=== PATIENT | female | born 1960 | race Caucasian/White ===

== ENCOUNTER 2018-02-27 08:26 | Inpatient (IN) | payer OTHER ==
[~2018-02-27] VITALS: Ht 10.2 cm; Wt 79.8 kg
[2018-02-27] MEDS ORDERED: SERTRALINE HCL100 MG PO (09:26)
[2018-02-27] MEDS ORDERED: ADULT ASPIRIN R81 MG PO (09:27)
[2018-02-27] MEDS ORDERED: LANSOPRAZOLE30 M2 PO (09:27)
[2018-02-27] MEDS ORDERED: ATORVASTATIN CA40 M1 PO (09:27)
--- NOTE | 2018-02-27 09:34 | RADIOLOGY REPORT ---
EXAMINATION: XR KNEE, RIGHT CLINICAL INFORMATION: Pain COMPARISON: None TECHNIQUE: Four views of the right knee. FINDINGS: Normal bony mineralization. No evidence of acute fracture or dislocation. Minor decrease in the medial tibiotalar joint and patellofemoral joints. Moderate chondrocalcinosis medial and lateral menisci. Small joint effusion. IMPRESSION: 1. No acute osseous abnormality. 2. Moderate chondrocalcinosis medial and lateral menisci. 3. Mild degenerative changes.
--- NOTE | 2018-02-27 10:50 | ED ANKLE/FOOT INJURY COMPLAINT ---
History of Present Illness General Chief Complaint: Lower Extremity Injury Stated Complaint: RT KNEE AND LEG PAIN Source: patient, family Exam Limitations: no limitations Vital Signs & Intake/Output Vital Signs & Intake/Output Vital Signs Date Time Temp Pulse Resp B/P B/P Pulse O2 O2 Flow FiO2 Mean Ox Delivery Rate 02/27 2047 98.3 82 20 103/57 95 Room Air 02/27 1908 98.3 116 18 115/62 95 Room Air 02/27 1441 98.3 81 16 111/73 97 Room Air 02/27 1203 98.0 73 18 106/55 96 Room Air 02/27 0831 97.1 100 16 106/71 96 Room Air Allergies Coded Allergies: No Known Allergies (02/27/18) Reconcile Medications Aspirin (Adult Aspirin Regimen) 81 MG TABLET.DR 1 TAB PO DAILY HEART HEALTH ( Reported) Atorvastatin Calcium 40 MG TABLET 1 TAB PO DAILY CHOLESTEROL (Reported) Lansoprazole 30 MG CAPSULE.DR 1 CAP PO DAILY GI (Reported) Sertraline HCl 100 MG TABLET 1.5 TAB PO DAILY MENTAL HEALTH (Reported) Triage Note: PT STATES THAT SHE HAS BEEN HAVING R LEG PAIN SINCE YESTERDAY, DENIES INJURY. PAIN HAS BEEN CONSTANT. DECLINES MEDS AT TRIAGE Triage Nurses Notes Reviewed? yes HPI: 57 yo F PMH HLD, GERD presenting with right lower extremity pain. Patient woke up yesterday morning with right lower extremity pain, initially began in medial reyes, now in calf and posterior thigh, aching quality, constant, worse with movement, palpation, weight bearing, took 2 percocet without relief. Denies associated fevers, chills, chest pain, SOB, palpitations, LE swelling, recent immobility or hospitalistion, weakness, numbness, or other focal neurologic Sx. No known straing/spraining injury or direct trauma to leg. (Christal WALDRON,Jono) Past History Travel History Traveled to [place] past 21 day No Medical History Any Pertinent Medical History? 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 Yes (Christal WALDRON,Jono) Review of Systems Review of Systems Constitutional: Reports: no symptoms. EENTM: Reports: no symptoms. Respiratory: Reports: no symptoms. Cardiovascular: Reports: no symptoms. GI: Reports: no symptoms. Genitourinary: Reports: no symptoms. Musculoskeletal: Reports: see HPI. Skin: Reports: see HPI. Neurological/Psychological: Reports: see HPI. Hematologic/Endocrine: Reports: no symptoms. Immunologic/Allergic: Reports: no symptoms. All Other Systems: Reviewed and Negative (Christal WALDRON,Jono) Physical Exam Physical Exam General Appearance: well developed/nourished, mild distress Head: atraumatic Eyes: Bilateral: PERRL, EOMI. Ears, Nose, Throat: normal pharynx, normal ENT inspection, hearing grossly normal Neck: normal inspection, supple Cardiovascular/Respiratory: regular rate/rhythm Back: normal inspection Leg/Knee/Thigh Left: pain Psychiatric: awake, alert, oriented x 3 Skin: intact, normal color, warm/dry Comments: Lower extremities: TTP over right posterior popliteal fossa, calf, and right lateral knee joint, trace non-pitting swelling of RLE, 2+ PT pulses bilaterally without symmetric tactile temperature, BLE strength 5/5, no sensory deficits (Christal WALDRON,Jono) Progress Differential Diagnosis: DVT, CHF, arterial insufficiency, cellulitis, septic arthritis, gout, fracture, dislocation, sprain, contusion, compartmental syndrome Plan of Care: Orders Procedure Date/time Status Regular Diet 02/28 B Active CBC WITHOUT DIFFERENTIAL 02/28 600 Active BASIC ELECTROLYTES PLUS BUN&CR 02/28 600 Active PT Evaluate & Treat 02/27 2235 Active Heat/Cold Therapy 02/27 2234 Active Pathway - chart 02/27 2059 Active House Staff 02/27 2059 Active ED Holding Orders 02/27 2054 Active Vital Signs 02/27 2054 Active Code Status 02/27 2054 Active Patient Data 02/27 2046 Active BLOOD CULTURE 02/27 1941 Active Admit to inpatient 02/27 1907 Active Add-on Test (ER Only) 02/27 1907 Active Add-on Test (ER Only) 02/27 1824 Active CULTURE,BODY FLUID 02/27 1446 Active SYNOVIAL FLUID CELL COUNT 02/27 1446 Active CRYSTAL ANALYSIS 02/27 1446 Active URIC ACID 02/27 1341 Complete LYME TITRE 02/27 1341 Active C-REACTIVE PROTEIN 02/27 1341 Complete WESTERGREN SED RATE 02/27 1323 Complete CBC WITHOUT DIFFERENTIAL 02/27 1323 Complete BASIC METABOLIC PANEL 02/27 1323 Complete Intake & Output 02/27 0946 Active VTE Mechanical Prophylaxis 02/27 UNK Active Heat/Cold Therapy 02/27 UNK Active Activity/Ambulation 02/27 UNK Active Current Medications Sig/Nguyen Start time Last Medication Dose Stop Time Status Admin Atorvastatin Calcium 40 MG 1700 02/28 1700 AC (Lipitor) Aspirin Buffered 81 MG DAILY 02/28 09 AC (Ecotrin) Enoxaparin Sodium 40 MG DAILY 02/28 09 AC (Lovenox) Sertraline HCl 150 MG DAILY 02/28 900 AC (Zoloft) Omeprazole 20 MG DAILY AC 02/28 07 AC (Prilosec) Indomethacin Sodium 50 MG TID 02/27 2245 UNVr (Indocin 25 MG Cap) Oxycodone/ 1 TAB Q6P PRN 02/27 2115 AC Acetaminophen (Percocet) Acetaminophen 650 MG Q6P PRN 02/27 2100 AC (Tylenol) Laboratory Tests 02/27/18 1600: Lymphocytes 2, % Normal PMNs 76, Misc Hematology Test , Fluid WBC 93899 H, Fld Total RBCs Counted 3000 H 02/27/18 1446: Fluid Total Protein Cancelled 02/27/18 1341: Anion Gap 10, Estimated GFR > 60, BUN/Creatinine Ratio 12.5, Glucose 93, Uric Acid 4.7, Calcium 9.6, C-Reactive Prot, Quant 4.6 H, CBC w Diff NO MAN DIFF REQ , RBC 4.61, MCV 92.1, MCH 31.3 H, MCHC 34.0, RDW 13.6, MPV 7.0 L, Gran % 67.1, Lymphocytes % 22.1, Monocytes % 7.9, Eosinophils % 1.8, Basophils % 1.1, Absolute Granulocytes 6.5, Absolute Lymphocytes 2.1, Absolute Monocytes 0.8 H, Absolute Eosinophils 0.2, Absolute Basophils 0.1, ESR Westergren 22 H, Lyme Disease Antibody Pending Microbiology 02/28 2048 BLOOD: Blood Culture - RECD 02/27 2030 BLOOD: Blood Culture - RECD 02/27 1600 BODY FLUID: Body Fluid Culture - RES 02/27 1600 BODY FLUID: Gram Stain - RES Physician MDM: 57 yo F PMH HLD, GERD presenting with right lower extremity pain. HR 90s, VSS, remainder of exam as above. DDx: MSK strain, DVT, ruptured sullivan's cyst, inflammatory arthritis, ligamentous strain, low concern for septic arthritis, knee Fx or acute limb ischemia. Right knee XR with some degenerative changes, unremarkable. RLE DVT US without evidence of DVT, mild-moderate right knee effusion. Labs to evaluate for septic arthritis sent, normal WBC count, ESR with trace elevation at 22, low concern for septic arthritis. Right knee arthrocentesis preformed: skin and needle tract anesthetized with lidocaine, skin sterilized with chlorohexadine preps x 3, allowed to dry fully, mask and sterile gloves used, 10 ccs of cloudy yellow fluid drained from lower medial knee joint with 18g needle, no apparent complications, pain somewhat improved after procedure. Synovial fluid analysis with 29,000 WBCs, inflammatory, though not suggestive of esptic joint (>50,000). Patient given oxycodone x2, ibuprofen, tylenol with minimal relief of pain, on re-examination patient sleeping, comfortable, but unable to ambulate on right leg without significant pain, nearly fell several times despite cane. Given that the patient is unable to ambulate, I will admit her for pain control, PT evaluation, follow up of synovial fluid analysis +/- orthopedics consult. (Christal WALDRON,Jono) Departure Departure Disposition: STILL A PATIENT Condition: Stable Clinical Impression Primary Impression: Inflammatory arthritis Referrals: Uriel WALDRON,Dewey Chambers (PCP/Family) Departure Forms: Customer Survey General Discharge Information Admission Note Spoke With: Shoshana Esquivel MD Documentation of Exam: Documentation of any treatments & extenuating circumstances including Concerns Regarding Discharge (functional status, medication knowledge or non-compliance, living conditions, etc.) that warrant an admission rather than observation: [ Patient presents with atraumatic right knee pain that was preventing her from ambulating at baseline prompting presentation to the emergency department, in the emergency department she was found to have a right knee effusion, the fusion appears to be inflammatory in nature, septic arthritis was unable to be ruled out, the patient requires admission to the hospital for IV antibiotics, monitoring, follow up of synovial fluid studies, PT/OT evaluation, and possibly orthopedics consult, if discharged patient has a high likelihood of following with significant manic injury leading to morbidity or possibly , if discharged patient has a high likelihood of progressive inflammation of her right knee, possibly leading to severe joint damage and signifcant morbidity (Christal WALDRON,Jono) Resident Co-Sign Statement Statement: ED Attending supervision documentation- [X] I saw and evaluated the patient. I have also reviewed all the pertinent lab results and diagnostic results. I agree with the findings and the plan of care as documented in the Resident's documentation. [X] I have reviewed the ED Record and agree with the Resident's documentation. [] Additions or exceptions (if any) to the Resident's note and plan are summarized below: [] (Alex WALDRON,Sandro Cifuentes)
--- NOTE | 2018-02-27 13:03 | ULTRASOUND REPORT ---
EXAMINATION: US TRIPLEX LOWER EXTREMITY, RIGHT CLINICAL INFORMATION: Right lower extremity swelling. COMPARISON: Same day right knee radiographs. TECHNIQUE: Color-flow triplex imaging with spectral analysis and compression Doppler were performed on the lower extremity. FINDINGS: Respiratory variation, normal compression and augmented flow are noted throughout the lower extremity. The visualized common femoral vein, superficial femoral vein, profunda femoral vein, popliteal vein and midcalf peroneal and posterior tibial venous segments show no evidence of deep venous thrombosis. There is a [id number] right knee joint effusion. IMPRESSION: No evidence for deep venous thrombosis. [id number] right knee joint effusion.
[2018-02-27 13:52] LABS: ABSOLUTE BASOPHIL COUNT 0.1 /CUMM (0.0-0.2); ABSOLUTE EOSINOPHIL COUNT 0.2 /CUMM (0.0-0.7); ABSOLUTE GRANULOCYTE CT 6.5 /CUMM (1.4-6.5); ABSOLUTE LYMPH COUNT 2.1 /CUMM (1.2-3.4); ABSOLUTE MONOCYTE COUNT 0.8 /CUMM (0.10-0.60); BASOPHIL % 1.1 % (0.0-2.0); EOSINOPHIL % 1.8 % (0-5); GRANULOCYTE % 67.1 % (42.2-75.2); HEMATOCRIT 42.5 % (37-47); MEAN CORPUSCULAR HGB 31.3 PG (27.0-31.0); MEAN CORPUSCULAR VOLUME 92.1 FL (81.0-99.0); PLATELET COUNT 209 /CUMM (130-400); RBC DISTRIBUTION WIDTH 13.6 % (11.5-14.5); RED BLOOD CELL CT 4.61 /CUMM (4.20-5.40); WHITE BLOOD CELL COUNT 9.6 /CUMM (4.8-10.8)
--- NOTE | 2018-02-27 20:41 | History & Physical ---
MustaphaAlee 02/27/182036: General Information and HPI MD Statement: I have seen and personally examined DORIE HASSAN and documented this H&P. The patient is a 57 year old F who presented with a patient stated chief complaint of [Joint pain]. Source of Information: patient, old records Exam Limitations: no limitations History of Present Illness: Ms. Hassan is a 57yo F w/ PMH of hyperlipidemia, GERD, presented to ER with right lower extremity pain. On Tuesday patient got up early with sudden onset of right knee none-weight bearing due to pain/cramping at knee, and had been using icy hot patch on . Tuesday morning she felt less cramping/pain, and went shopping with grandson, however at Tuesday night it got worse again. She took oxycontin to ease the pain but not really helping, and had difficulty getting to bathroom during the night. The pain was radiating down to calf on Tuesday but now more localized to the top and back of the knee with a pulling/stretching feelings, and without DVT findings in ER imaging.Patient denied any redness, but endorsed that the right knee seems more swollen than the left. Patient denied similar episodes in the past. -FHx: Mother may have had gout, father had CAP s/p stent. During our clinical interaction, patient denied recent travel/sick contacts, fever/lightheadedness/diaphoresis/night sweat/weight change/cough/SOB/Chest Pain /Palpitation/Abdominal pain/bowel movement or urinary abnormality, or other skin /musculoskeletal/neurological/mood disorders, or dietary/appetite change. -Smokin cigs/day x 40yrs -Alcohol: 2-3 glasses of rum with diet coke -Rec Drugs: denied Allergies/Medications Allergies: Coded Allergies: No Known Allergies (02/27/18) Home Med list Aspirin (Adult Aspirin Regimen) 81 MG TABLET. 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 . FATHER (CAD s/p stent). Psychosocial History Smoking Status: Current Everyday Smoker ETOH Use: occasional use Illicit Drug Use: denies illicit drug use Functional Ability ADLs Independent: dressing, eating, toileting, bathing. Ambulation: independent IADLs Independent: shopping, housework, finances, food prep, telephone, transportation , medication admin. Review of Systems Review of Systems Constitutional: Reports: see HPI. Exam & Diagnostic Data Last 24 Hrs of Vital Signs/I&O Vital Signs Date Time Temp Pulse Resp B/P B/P Pulse O2 O2 Flow FiO2 Mean Ox Delivery Rate 02/27 1908 98.3 116 18 115/62 95 Room Air 02/27 1441 98.3 81 16 111/73 97 Room Air 02/27 1203 98.0 73 18 106/55 96 Room Air 02/27 0831 97.1 100 16 106/71 96 Room Air Intake & Output 02/27 1600 02/27 0800 02/27 0000 Intake Total Output Total Balance Patient 80.739 kg Weight Physical Exam General Appearance Alert, Oriented X3, Cooperative, No Acute Distress Skin No Rashes, No Breakdown, No Significant Lesion Skin Temp/Moisture Exam: Warm/Dry Sepsis Skin Exam (color): Normal for Ethnicity HEENT Atraumatic, PERRLA Neck Supple, No JVD Lymphatic Axillary nl, Cervical nl Cardiovascular Regular Rate Lungs Clear to Auscultation, Normal Air Movement Abdomen Normal Bowel Sounds, Soft, No Tenderness Neurological Normal Speech, Normal Tone, Sensation Intact Extremities No Cyanosis, No Edema, Normal Pulses, No Tenderness/Swelling, limited ROM of right knee Last 24 Hrs of Labs/Kiko: Laboratory Tests 02/27/18 1600: Lymphocytes 2, % Normal PMNs 76, Misc Hematology Test , Fluid WBC 33460 H, Fld Total RBCs Counted 3000 H 02/27/18 1446: Fluid Total Protein Cancelled 02/27/18 1341: Anion Gap 10, Estimated GFR > 60, BUN/Creatinine Ratio 12.5, Glucose 93, Uric Acid 4.7, Calcium 9.6, C-Reactive Prot, Quant 4.6 H, CBC w Diff NO MAN DIFF REQ , RBC 4.61, MCV 92.1, MCH 31.3 H, MCHC 34.0, RDW 13.6, MPV 7.0 L, Gran % 67.1, Lymphocytes % 22.1, Monocytes % 7.9, Eosinophils % 1.8, Basophils % 1.1, Absolute Granulocytes 6.5, Absolute Lymphocytes 2.1, Absolute Monocytes 0.8 H, Absolute Eosinophils 0.2, Absolute Basophils 0.1, ESR Westergren 22 H, Lyme Disease Antibody Pending Microbiology 02/28 2048 BLOOD: Blood Culture - RECD 02/27 2030 BLOOD: Blood Culture - RECD 02/28 1600 BODY FLUID: Body Fluid Culture - RES 02/28 1600 BODY FLUID: Gram Stain - RES Assessment/Plan Assessment: On admission, Vitals: Stable afebrile, tachycardia in the 100s, BP 111/73, 97% on room air -CBC: Unremarkable except ESR 22 -BMP: Unremarkable -UA/Microbiology: -Knee x-ray: 1. No acute osseous abnormality. 2. Moderate chondrocalcinosis medial and lateral menisci. 3. Mild degenerative changes. -EKG: NSR w/o significant ST-T abnormalities. -Interventions in ER: Arthrocentesis Problem list/Assessment/Hospital Course: #Right knee pain, pending ruling out septic arthritis, ddx including septic/ gouty/pseudogout/trauma/osteo. Based on patient's age, imaging showing chondrocalcinosis, cell count <[id number] in arthrocentesis, pending crystal, no previous gouty episodes/low serum UA, patient's likely to be pseudogouty/trauma. #Active smoker #PMH of hyperlipidemia, GERD - Admit to general medicine floor, vitals per protocol - Advised patient to restrain from moving around unless necessary. Commode provided in room. - Monitor if any fever - Pain control w/ Tylenol/Percocet - Continued home meds + nicotine patch PRN - Pending rheumatology consult in the AM - Pending arthrocentesis culture/crystal in the AM. if not infectious, will seek for steroid injection. - Start ABX if fever. DVT prophylaxis Pharm PPX + ALPS Regular Diet Full Code As Ranked By This Provider Problem List: 1. Inflammatory arthritis Core Measures/Misc (06/12) Acute Coronary Syndrome ACS Diagnosis: No Congestive Heart Failure Congestive Heart Failure Diagnosis No Cerebrovascular Accident CVA/TIA Diagnosis: No VTE (View Protocol) VTE Risk Factors Age>40 No Mechanical VTE Prophylaxis d/t N/A MechProphylax Ordered No VTE Pharm Prophylaxis d/t NA PharmProphylax ordered Sepsis (View protocol) Sepsis Present: No If YES complete Sepsis Event Note If YES complete Sepsis Event Note Trent D[place] 02/28/18 0040: Core Measures/Misc (06/12) Sepsis (View protocol) If YES complete Sepsis Event Note If YES complete Sepsis Event Note Resident Review Statement Resident Statement: examined this patient, discussed with exercise science internship, agreed with exercise science internship, amended to note Other Findings: Ms Hassan is a 57-year-old woman with a past history of remote h/o nephrolithiasis, hyperlipidemia, GERD, mild depression came into the hospital with a chief concern of right leg pain that started 2 day ago, which she noticed it incidentally while she was walking. Pain was repoted to be in her right knee, 10/10, radiation to the right leg, and was partially relieved w/ taking oxycontin+cold tx. After one day, she went to the grocery store, when she realized that pain was worsened, and then came in to the ER. She reported that she may have twisted the knee on a few occassions, but no clear h/o severe injury or contact sports, no fall, or injury. No history of fever, or chills. No erythema around right knee, no tendnerss, rash or other joint pains. No h/o joint pains, no h/o colitis ( last colonoscopy was normal). No neuro deficits. No chest pain, shortness of breath, palpitations. No recent immobilization. 30- pack-year smoking history. Nonalcoholic. No previous h/o gout. No prosthetic joints, or other hardware in the body. No recent tx for bacteremia. No IVDA or use of prednisone or other immunosuppressive agents. At the time of admission-temperature 98.0, pulse rate 73, respiration 18, blood pressure 106/55, 96% on room air. General Exam: AAOx3, No acute distress, Skin: No rashes, no breakdown;HEENT: PERRLA, EOMI;Neck: Supple, No JVD;No cervical lymphadenopathy;CVS: Reg Rate, Normal S1,S2, No MGR;Resp: Normal air entry, no ronchi/rales;Abdomen: Soft, No tenderness, Normal Bowel Sounds;Neuro: Normal Speech, Strength 5/5 b/l x 4 extremities, Sensation intact, CN III-XII NL, Reflexes 2+;Extremities: No cyanosis, no pedal edema, restricted joint mobility on RLE, no tenderness, or erythema. Arthrocentesis was done in the ER. Pertinent lab findings: WBC 9.6, hemoglobin 14.4, hematocrit 42.5. Platelets 209. ESR 22 Renal Fn BUN 10, Sr Cr 0.8. Uric acid 4.7 Arthrocentesis fluid analysis: WBC 29k, RBCs 3000 w/ diff 76% granulocytes. Crystal analysis pending. Gram stain negative. Cultures pending. Lyme disease antibody-pending Knee x-ray 02/27/2018 revealed 1. No acute osseous abnormality.2. Moderate chondrocalcinosis medial and lateral menisci.3. Mild degenerative changes. Lower extremity right venous Doppler 02/27/2018 revealed no evidence for deep venous thrombosis. [id number]-ns-[id number] right knee joint effusion. 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 Alghough, she didnt have any gastrib bypoass surgery, previous h/o nephrolithiasis whould point towards calcium crytstals. Although, she doesnt have any risk factors, septic arthritis should always be in the differential, while OA, RA should be considered. She also had repetitite minor injuries, which sould have caused meniscal tears, leading to joint effsion too. Remote causes such as Reiters/reactive are not likely. Lyme disease is pending, but given the area, it should be in the differential always. In regards to septic arthritis, she was already given vancomycin in the ER. Gram stain is not very sensitive, and also an early infective state can give WBC < 50k, and if she develops any s/s of infection she should be started on abx. Problem list: 1. 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 h/o depression Plan: - Admit the pt to gen med service. - Joint immobilization at position of comfort. - Bed rest for now. - Heat/Cold tx - Tx w/ Indomethacin 50 mg TID scheudled for now to quell the acute flare. - Follow joint aspiration anaysis that would direct tx. - If it is indeed crystalline arthritis, start prophylactic w/ flare prevention w/ either nsaid or urate lowering drug. - Physical Tx. - Neurovascular checks every shift. - Monitor vitals closely. Checklist: 1. DVT PPx- pharmacological 2. GI PPx- PPI 3. Full code 4. Med rec-done. Alvin WALDRON, [facility] 02/28/18 0237: Core Measures/Misc (06/12) Sepsis (View protocol) If YES complete Sepsis Event Note If YES complete Sepsis Event Note Attending MD Review Statement Attending Statement Attending MD Statement: examined this patient, discuss w/resident/PA/HAMPER MAKER, agreed w/resident/PA/HAMPER MAKER, discussed with family, reviewed images, amended to note Attending Assessment/Plan: 57 yo F with h/o GERD, HLD, prediabetes, depression, is here for evaluation of right knee and leg stiffiness, numbness with pain that started 2 days ago. She did notice the right knee was swollen but denies erythema. Patient denies any trauma or fall. Prolonged standing made the pain worse. She has difficulty bending her knee and has been using a cane to help ambulation. She reports hot flashes but no fever, chills or night sweats. She has no history of diabetes, rheumatoid or osteoarthritis, no prosthetic joints or previous joint surgeries. She denies steroid intra-articular injections, no IV drug use. She denies h/o gout. She is a current smoker and drinks 1- 4 glasses of rum everyday after work. Denies any alcohol withdrawals or DT's. She does report that over the past 1 month, she has noticed pain in the right knee with twisting or turning movements of the leg. Vitals stable. Right knee appears swollen compared to left but no erythema or warmth, ROM is limited. Attempted doing knee maneuvre's but limited exam due to knee pain. Peripheral pulses are well felt. Arthrocentesis performed in ER. Labs: WBC 9.6, ESR 22, CRP 4.6, uric acid 4.7. Synovical fluid analysis: WBC 31286, PMN's 76, lymphocytes 2, RBC 3000, Gram stain no organisms. Culture pending. Crystal analysis pending. Right knee Xray: moderate chondrocalcinosis medial and lateral menisci, with mild degenerative changes, small joint effusion. LE doppler: no DVT. Small to moderate right knee joint effusion. Assessment and plan: 1. Acute right knee effusion and swelling, concerning for inflammatory arthritis most likely pseudogout (given xray findings, synovial WBC <18541), however septic arthritis remains in the differential and should be ruled out with negative blood and synovial cultures. Systemic rheumatic disease or gonococcal infection are other possibilities. Another differential is a meniscal injury or cartilage tear. 2. Gait instability 3. History of pre-diabetes, GERD, HLD - Admit to General medicine - Pancuture - Await fluid culture and crystal analysis results - IV vancomycin given in ER. We will hold off antibiotics unless patient is febrile or trevor a white count - Most likely this is inflammatory arthritis and can be managed with intra- articular steroid injections, once infection is ruled out. - Immobilization - Local ice or cool packs - Indomethacin 50 mg TID until further plan by Rheumatology - Consult rheumatology - PT eval - Pain management with Tylenol, tramadol and percocet as needed - Smoking cessation counseling, nicotine patch - Continue home meds DVT ppx Hep SC. Full code.
--- NOTE | 2018-02-27 21:40 | Admission Certification ---
Admission Certification Certification Statement - As attending physician, I certify that at the time of - admission, based on clinical presentation, severity of - symptoms, need for further diagnostic testing and - therapeutic interventions, and risk of adverse outcomes - without in-hospital treatment, in my clinical assessment, - this patient requires an acute hospital stay for a minimum - of two nights or longer. I have also considered psychsocial - factors such as support system, advanced age, financial - issues, cognitive issues, and failed out-patient treatments, - past re-admission history, safety of patient, and lack of - compliance as applicable. Specific rationale supporting this admission is: Right knee acute pain and effusion with gait instability.
[2018-02-28 06:08] LABS: ABSOLUTE BASOPHIL COUNT 0 /CUMM (0.0-0.2); ABSOLUTE EOSINOPHIL COUNT 0.2 /CUMM (0.0-0.7); ABSOLUTE GRANULOCYTE CT 5.5 /CUMM (1.4-6.5); ABSOLUTE LYMPH COUNT 1.5 /CUMM (1.2-3.4); ABSOLUTE MONOCYTE COUNT 0.7 /CUMM (0.10-0.60); BASOPHIL % 0 % (0.0-2.0); EOSINOPHIL % 2.6 % (0-5); GRANULOCYTE % 69.1 % (42.2-75.2); HEMATOCRIT 39.5 % (37-47); MEAN CORPUSCULAR HGB 31.3 PG (27.0-31.0); MEAN CORPUSCULAR HGB CONC 33.8 G/DL (33.0-37.0); MEAN CORPUSCULAR VOLUME 92.6 FL (81.0-99.0); MEAN PLATELET VOLUME 7.3 FL (7.4-10.4); PLATELET COUNT 187 /CUMM (130-400); RBC DISTRIBUTION WIDTH 13.6 % (11.5-14.5); RED BLOOD CELL CT 4.27 /CUMM (4.20-5.40); WHITE BLOOD CELL COUNT 7.9 /CUMM (4.8-10.8)
--- NOTE | 2018-02-28 08:33 | Cons- Rheumatology ---
General Information and HPI Consulting Request Date of Consult: 02/28/18 Requested By: Alvin WALDRON,Shoshana Reason for Consult: Evaluate a painful swollen right knee Source of Information: patient Exam Limitations: no limitations History of Present Illness: This is a 57-year-old female who I'm asked to see in consultation with a chief complaint of a painful right knee. Patient has no previous history of arthritis. She claims 3 days ago she awoke with pain and swelling of her right knee there is no history of trauma. Over this period time the pain became so bad she came to the emergency room 24 hours ago. She denies fever or chills. He's been worked up in the emergency room with an x-ray which reveals chondrocalcinosis. She also had an aspiration of the right knee which yielded 10 mL of cloudy fluid. The culture of this fluid is pending but the cell count shows a white count of 29,000 which is inflammatory. It is no report of any calcium pyrophosphate crystals found. Routine labs are unremarkable she was given Indocin 50 mg around midnight earlier today. Allergies/Medications Allergies: Coded Allergies: No Known Allergies (02/27/18) Home Med List: Aspirin (Adult Aspirin Regimen) 81 MG TABLET.DR 1 TAB PO DAILY HEART HEALTH ( Reported) Atorvastatin Calcium 40 MG TABLET 1 TAB PO DAILY CHOLESTEROL (Reported) Lansoprazole 30 MG CAPSULE.DR 1 CAP PO DAILY GI (Reported) Sertraline HCl 100 MG TABLET 1.5 TAB PO DAILY MENTAL HEALTH (Reported) Review of Systems Review of Systems: Is no history of psoriasis or inflammatory bowel disease. He does have upper GI symptoms and takes Prevacid for this. There is no history of any bleeding ulcers. She denies previous episodes of painful joint swelling. 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 She is a cigarette smoker and does have 2 or 3 drinks of rum a few nights per week. 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 . FATHER (CAD s/p stent). Psychosocial History Smoking Status: Current Everyday Smoker ETOH Use: occasional use Illicit Drug Use: denies illicit drug use Functional Ability ADLs Independent: dressing, eating, toileting, bathing. Ambulation: independent IADLs Independent: shopping, housework, finances, food prep, telephone, transportation , medication admin. Exam & Diagnostic Data Vital Signs and I&O Vital Signs Date Time Temp Pulse Resp B/P B/P Pulse O2 O2 Flow FiO2 Mean Ox Delivery Rate / 0611 96.5 78 18 114/61 96 Room Air 06/05 0031 96.9 96 18 107/57 96 Room Air 06/ 2047 98.3 82 20 103/57 95 Room Air 06/04 1908 98.3 116 18 115/62 95 Room Air 06/04 1441 98.3 81 16 111/73 97 Room Air 06/04 1203 98.0 73 18 106/55 96 Room Air 06/ 0831 97.1 100 16 106/71 96 Room Air Physical Exam: On examination she is well-developed well-nourished alert woman lying on a stretcher in the emergency room. She is afebrile. Examination of her hands wrists elbows and shoulders have good range of motion without any tenderness swelling or subcutaneous nodules right knee appears enlarged and is warm with a supra patellar effusion present. We'll to fully extend the knee I do feel a popliteal swelling, typical of a Bermeo's cyst behind the right knee. Action is limited to 90. He has good range of motion without any swelling or tenderness. Ankles and feet are normal Assessment/Plan Assessment: This represents an acute monoarticular inflammatory arthritis. Finding of chondrocalcinosis on x-rays most likely this represents pseudogout although the synovial fluid examination did not disclose calcium pyrophosphate crystals. I have very little suspicion that this represents a septic arthritis but she should be admitted and observed until the cultures of the synovial fluid are definitively negative. She was given Indocin 50 mg and I would agree with continuing this 3 times a day for the first 36 or so hours. If the synovial fluid cultures negative she could be discharged and followed up as an outpatient. The Indocin should be tapered after 36 hours to 50 mg twice a day for another 48 hours and then discontinued. Recommendations: I would hold off on antibiotics at the present time and continue Indocin as stated above Consult Acknowledgment - Thank you for your consult request.
--- NOTE | 2018-02-28 08:42 | PN- Housestaff ---
Brenton Brito 02/28/18 0842: Subjective Follow-up For: R knee pseudogout Subjective: Patient reports R knee pain with flexion and extension. Review of Systems Constitutional: Reports: see HPI. Objective Last 24 Hrs of Vital Signs/I&O Vital Signs Date Time Temp Pulse Resp B/P B/P Pulse O2 O2 Flow FiO2 Mean Ox Delivery Rate 02/28 0917 98.0 73 18 100/56 95 Room Air / 0611 96.5 78 18 114/61 96 Room Air / 0031 96.9 96 18 107/57 96 Room Air / 2047 98.3 82 20 103/57 95 Room Air / 1908 98.3 116 18 115/62 95 Room Air / 1441 98.3 81 16 111/73 97 Room Air / 1203 98.0 73 18 106/55 96 Room Air Physical Exam General Appearance: Alert, Oriented X3, Cooperative, No Acute Distress Cardiovascular: Regular Rate, Normal S1, Normal S2 Lungs: Clear to Auscultation, Normal Air Movement Abdomen: Normal Bowel Sounds, Soft, No Tenderness Extremities: R knee swelling with + Bermeo cyst Current Medications: Current Medications Sig/Nguyen Start time Last Medication Dose Route Stop Time Status Admin Acetaminophen 650 MG Q6P PRN 02/27 2100 AC PO Aspirin Buffered 81 MG DAILY 02/28 0900 AC 02/28 PO 0910 Atorvastatin Calcium 40 MG 1700 02/28 1700 AC PO Enoxaparin Sodium 40 MG DAILY 02/28 0900 AC 02/28 SC 0910 Ibuprofen 0 .STK-MED ONE 02/27 1734 DC PO Ibuprofen 600 MG ONCE ONE 02/27 1645 DC 02/27 PO 02/27 1646 1727 Indomethacin Sodium 50 MG TID 02/28 0900 DC PO Indomethacin Sodium 50 MG TID 02/28 0900 AC 02/28 PO 0910 Indomethacin Sodium 50 MG TID 02/28 0045 CAN PO Indomethacin Sodium 50 MG TID 02/27 2245 DC 02/28 PO 0032 Lidocaine 0 .STK-MED ONE 02/27 1402 DC .ROUTE Lidocaine 20 ML ONCE ONE 02/27 1330 DC 02/27 ID 02/27 1331 1422 Nicotine 0 .STK-MED ONE 02/28 0920 DC TOP Nicotine 14 MG ONCE ONE 02/28 0915 DC 06/05 TOP 02/28 0916 0910 Nicotine 0 .STK-MED ONE 02/27 2042 MT TOP Nicotine 14 MG ONCE ONE 02/28 2000 DC 02/27 TOP 02/27 Omeprazole 0 .STK-MED ONE 02/28 722 DC PO Omeprazole 20 MG DAILY AC 02/28 07 AC 02/28 PO 0716 Oxycodone HCl 0 .STK-MED ONE 02/27 1734 DC PO Oxycodone HCl 5 MG ONCE ONE 02/27 1645 DC 02/27 PO 02/27 1646 1727 Oxycodone/ 1 TAB Q6P PRN 02/27 2115 AC Acetaminophen PO Sertraline HCl 150 MG DAILY 02/28 900 AC 02/28 PO 0910 Vancomycin HCl 1,000 MG ONCE ONE 02/27 194 DC 02/27 Sodium Chloride 250 ML IV 02/27 Last 24 Hrs of Lab/Kiko Results Last 24 Hrs of Labs/Mics: Laboratory Tests 02/28/18 0551: Anion Gap 12, Estimated GFR > 60, BUN/Creatinine Ratio 17.5, CBC w Diff NO MAN DIFF REQ, RBC 4.27, MCV 92.6, MCH 31.3 H, MCHC 33.8, RDW 13.6, MPV 7.3 L, Gran % 69.1, Lymphocytes % 18.9 L, Monocytes % 9.4 H, Eosinophils % 2.6, Basophils % 0, Absolute Granulocytes 5.5, Absolute Lymphocytes 1.5, Absolute Monocytes 0.7 H, Absolute Eosinophils 0.2, Absolute Basophils 0 02/27/18 1600: Lymphocytes 2, % Normal PMNs 76, Misc Hematology Test , Fluid WBC 61813 H, Fld Total RBCs Counted 3000 H 02/27/18 1446: Fluid Total Protein Cancelled 02/27/18 1341: Anion Gap 10, Estimated GFR > 60, BUN/Creatinine Ratio 12.5, Glucose 93, Uric Acid 4.7, Calcium 9.6, C-Reactive Prot, Quant 4.6 H, CBC w Diff NO MAN DIFF REQ , RBC 4.61, MCV 92.1, MCH 31.3 H, MCHC 34.0, RDW 13.6, MPV 7.0 L, Gran % 67.1, Lymphocytes % 22.1, Monocytes % 7.9, Eosinophils % 1.8, Basophils % 1.1, Absolute Granulocytes 6.5, Absolute Lymphocytes 2.1, Absolute Monocytes 0.8 H, Absolute Eosinophils 0.2, Absolute Basophils 0.1, ESR Westergren 22 H, Lyme Disease Antibody Pending Microbiology 02/28 2048 BLOOD: Blood Culture - RECD 02/27 2030 BLOOD: Blood Culture - RECD 02/28 1600 BODY FLUID: Body Fluid Culture - RES 02/28 1600 BODY FLUID: Gram Stain - RES Assessment/Plan Assessment: Ms Cerna is a 57-year-old woman with a past history of remote h/o nephrolithiasis, hyperlipidemia, GERD, mild depression came into the hospital with a chief concern of right knee pain #Pseudogout of R knee Plan: Watch off antibiotics Await final fluid cultures Continue Indomethacin TID for 3 days, will taper to BID for 2 days Appreciate Nephro recommendations Continue Atorvastatin, ASA, Omeprazole, Percocet, Sertraline 1. DVT PPx- Enoxaparin 2. GI PPx- PPI 3. Full code Problem List: 1. Inflammatory arthritis Pain Ratin Pain Location: NA Pain Goal: Remain pain free Pain Plan: NA Tomorrow's Labs & Rationales: none Artur WALDRON,[facility] 02/28/18 1208: Attending MD Review Statement Attending Statement Attending MD Statement: examined this patient, discuss w/resident/PA/PROJECT SPECIALIST, agreed w/resident/PA/PROJECT SPECIALIST, reviewed EMR data (avail), discussed with nursing, discussed with case mgmt, reviewed images, amended to note Attending Assessment/Plan: Patient seen and examined, doing better overall. The right knee is less painful and she has somewhat improved range of motion at the right knee at this time. Vital Signs Date Time Temp Pulse Resp B/P B/P Pulse O2 O2 Flow FiO2 Mean Ox Delivery Rate 02/28 1155 98.1 84 20 114/66 94 Room Air 02/28 0917 98.0 73 18 100/56 95 Room Air 02/28 0611 96.5 78 18 114/61 96 Room Air 02/28 0031 96.9 96 18 107/57 96 Room Air 02/27 2047 98.3 82 20 103/57 95 Room Air 02/27 1908 98.3 116 18 115/62 95 Room Air 02/27 1441 98.3 81 16 111/73 97 Room Air on exam; aox3, nad. cv; s1,s2, rrr resp; clear abd; soft, nt, bs+ ext;no edema rheum: + swelling and some erythema right knee. Has rom but limited. Laboratory Tests 02/28 02/27 02/27 0551 1600 1446 Chemistry Sodium (137 - 145 mmol/L) 141 Potassium (3.5 - 5.1 mmol/L) 4.0 Chloride (98 - 107 mmol/L) 104 Carbon Dioxide (22 - 30 mmol/L) 25 Anion Gap (5 - 16) 12 BUN (7 - 17 mg/dL) 14 Creatinine (0.5 - 1.0 mg/dL) 0.8 Estimated GFR (>60 ml/min) > 60 BUN/Creatinine Ratio (7 - 25 %) 17.5 Hematology CBC w Diff NO MAN DIFF REQ WBC (4.8 - 10.8 /CUMM) 7.9 RBC (4.20 - 5.40 /CUMM) 4.27 Hgb (12.0 - 16.0 G/DL) 13.4 Hct (37 - 47 %) 39.5 MCV (81.0 - 99.0 FL) 92.6 MCH (27.0 - 31.0 PG) 31.3 H MCHC (33.0 - 37.0 G/DL) 33.8 RDW (11.5 - 14.5 %) 13.6 Plt Count (130 - 400 /CUMM) 187 MPV (7.4 - 10.4 FL) 7.3 L Gran % (42.2 - 75.2 %) 69.1 Lymphocytes % (20.5 - 51.1 %) 18.9 L Monocytes % (1.7 - 9.3 %) 9.4 H Eosinophils % (0 - 5 %) 2.6 Basophils % (0.0 - 2.0 %) 0 Absolute Granulocytes (1.4 - 6.5 /CUMM) 5.5 Absolute Lymphocytes (1.2 - 3.4 /CUMM) 1.5 Lymphocytes (%) 2 Absolute Monocytes (0.10 - 0.60 /CUMM) 0.7 H Absolute Eosinophils (0.0 - 0.7 /CUMM) 0.2 Absolute Basophils (0.0 - 0.2 /CUMM) 0 % Normal PMNs (%) 76 Misc Hematology Test (%) Other Body Source Fluid WBC (0 - 5 /CUMM) 45534 H Fld Total RBCs Counted (0 /CUMM) 3000 H Fluid Total Protein Cancelled 02/27 1341 Chemistry Sodium (137 - 145 mmol/L) 140 Potassium (3.5 - 5.1 mmol/L) 3.7 Chloride (98 - 107 mmol/L) 101 Carbon Dioxide (22 - 30 mmol/L) 30 Anion Gap (5 - 16) 10 BUN (7 - 17 mg/dL) 10 Creatinine (0.5 - 1.0 mg/dL) 0.8 Estimated GFR (>60 ml/min) > 60 BUN/Creatinine Ratio (7 - 25 %) 12.5 Glucose (65 - 99 mg/dL) 93 Uric Acid (2.5 - 6.2 mg/dL) 4.7 Calcium (8.4 - 10.2 mg/dL) 9.6 C-Reactive Prot, Quant (<1.0 mg/dL) 4.6 H Hematology CBC w Diff NO MAN DIFF REQ WBC (4.8 - 10.8 /CUMM) 9.6 RBC (4.20 - 5.40 /CUMM) 4.61 Hgb (12.0 - 16.0 G/DL) 14.4 Hct (37 - 47 %) 42.5 MCV (81.0 - 99.0 FL) 92.1 MCH (27.0 - 31.0 PG) 31.3 H MCHC (33.0 - 37.0 G/DL) 34.0 RDW (11.5 - 14.5 %) 13.6 Plt Count (130 - 400 /CUMM) 209 MPV (7.4 - 10.4 FL) 7.0 L Gran % (42.2 - 75.2 %) 67.1 Lymphocytes % (20.5 - 51.1 %) 22.1 Monocytes % (1.7 - 9.3 %) 7.9 Eosinophils % (0 - 5 %) 1.8 Basophils % (0.0 - 2.0 %) 1.1 Absolute Granulocytes (1.4 - 6.5 /CUMM) 6.5 Absolute Lymphocytes (1.2 - 3.4 /CUMM) 2.1 Absolute Monocytes (0.10 - 0.60 /CUMM) 0.8 H Absolute Eosinophils (0.0 - 0.7 /CUMM) 0.2 Absolute Basophils (0.0 - 0.2 /CUMM) 0.1 ESR Westergren (0 - 20 MM) 22 H Serology Lyme Disease Antibody Pending A/P; 57 y/o F with pmh sig for hyperlipidemia, GERD, admitted with right knee pain and swelling with a question of septic versus inflammatory arthritis. Patient is status post arthrocentesis showing likely possibility of inflammatory arthritis such as pseudogout. Patient was also seen by rheumatology Dr. Emerson who also agrees with the same diagnosis although there wereno crystals seen but sometimes you are not able to see the crystals. Patient currently getting indomethacin which will be continued. It would be tapered down over the course of next 2 to 3 days. Patient can take Tylenol or Percocet in addition for pain but no other NSAIDs. Continue the rest of the management. Patient has been seen by physical therapy and cleared for home discharge. If her cultures remain negative and if she continues to improve then likely she can be discharged home tomorrow. Patient on Lovenox for DVT prophylaxis.
[2018-02-28 14:59] VITALS: BP 124/72
[2018-02-28 22:03] VITALS: BP 110/60
[2018-03-01 06:31] VITALS: BP 108/74
--- NOTE | 2018-03-01 07:37 | PN- Housestaff ---
See Addendum Subjective Follow-up For: Pseudogout Subjective: Patient reports decreased R knee swelling and pain. She feels a clicking sound on flexion at knee. Review of Systems Constitutional: Reports: see HPI. Objective Last 24 Hrs of Vital Signs/I&O Vital Signs Date Time Temp Pulse Resp B/P B/P Pulse O2 O2 Flow FiO2 Mean Ox Delivery Rate 03/01 0631 97.5 82 20 108/74 98 06/05 2203 98.2 65 20 110/60 97 Room Air / 1459 98.2 84 20 124/72 99 Room Air 06/ 1155 98.1 84 20 114/66 94 Room Air / 0917 98.0 73 18 100/56 95 Room Air Intake & Output 03/01 1600 03/01 0800 03/01 0000 Intake Total 480 250 Output Total Balance 480 250 Intake, IV 0 10 Intake, Oral 480 240 Number 0 1 Bowel Movements Physical Exam General Appearance: Alert, Oriented X3, Cooperative, No Acute Distress Extremities: Mild R knee swelling, no erythema. Persistent popliteal swelling Current Medications: Current Medications Sig/Nguyen Start time Last Medication Dose Route Stop Time Status Admin Acetaminophen 650 MG Q6P PRN / 2100 AC 03/01 PO 0606 Aspirin Buffered 81 MG DAILY 02/28 0900 AC 02/28 PO 0910 Atorvastatin Calcium 40 MG 1700 02/28 1700 AC 02/28 PO 1704 Enoxaparin Sodium 40 MG DAILY 02/28 0900 AC 02/28 SC 0910 Hydrocortisone 1 ANDREW TID PRN 02/28 1715 AC 02/28 EXT 1917 Indomethacin Sodium 50 MG TID 02/28 0900 AC 02/28 PO 2109 Nicotine 14 MG DAILY 02/28 2115 AC 02/28 TOP 2133 Nicotine 0 .STK-MED ONE 02/28 0920 DC TOP Nicotine 14 MG ONCE ONE 02/28 0915 DC 02/28 TOP 02/28 0916 0910 Omeprazole 20 MG DAILY AC 02/28 0700 AC 03/01 PO 0605 Oxycodone/ 1 TAB Q6P PRN 02/27 2115 AC Acetaminophen PO Sertraline HCl 150 MG DAILY 02/28 0900 AC 06 PO 0910 Assessment/Plan Assessment: Ms Cerna is a 57-year-old woman with a past history of remote h/o nephrolithiasis, hyperlipidemia, GERD, mild depression came into the hospital with a chief concern of right knee pain #Pseudogout of R knee Plan: Watch off antibiotics Await final fluid cultures Continue Indomethacin TID for 3 days, will taper to BID for 2 days Appreciate Nephro recommendations Continue Atorvastatin, ASA, Omeprazole, Percocet, Sertraline 1. DVT PPx- Enoxaparin 2. GI PPx- PPI 3. Full code Dispo: Home Problem List: 1. Inflammatory arthritis Pain Ratin Pain Location: NA Pain Goal: Remain pain free Pain Plan: NA Tomorrow's Labs & Rationales: none
[2018-03-01] MEDS ORDERED: NICOTINE PATCH1 EAC2 TOP ×2 (08:49→11:17)
[2018-03-01] MEDS ORDERED: HYDROCORTISO28.35 GM EXT ×2 (08:49→11:17)
[2018-03-01] MEDS ORDERED: INDOMETHACIN25 M1 PO ×2 (08:52→11:17)
--- NOTE | 2018-03-01 08:53 | Patient Discharge Instructions ---
Discharge Instructions General Discharge Information You were seen/treated for: Pseudogout You had these procedures: Arthocentesis Special Instructions: Follow up with your PCP within 1 week of discharge Follow up with [facility]-Dr. Emerson within 1-2 weeks of discharge Take your Indomethacin three times a day (8 hours apart) Diet Continue normal diet: Yes Activity Other activity limits: As tolerated Acute Coronary Syndrome Inclusion Criteria At DC or during hospital stay patient has or had the following: ACS DIAGNOSIS No Discharge Core Measures Meds if any: Prescribed or Continued at Discharge Meds if any: NOT Prescribed or Continued at Discharge Congestive Heart Failure Inclusion Criteria At DC or during hospital stay patient has or had the following: CHF DIAGNOSIS No Discharge Core Measures Meds if any: Prescribed or Continued at Discharge Meds if any: NOT Prescribed or Continued at Discharge Cerebrovascular accident Inclusion Criteria At DC or during hospital stay patient has or had the following: CVA/TIA Diagnosis No Discharge Core Measures Meds if any: Prescribed or Continued at Discharge Meds if any: NOT Prescribed or Continued at Discharge Venous thromboembolism Inclusion Criteria VTE Diagnosis No VTE Type NONE VTE Confirmed by (Test) NONE Discharge Core Measures - Per Current guidelines, there needs to be overlap - treatment for the first 5 days of Warfarin therapy. - If discharged on Warfarin prior to 5 days of - overlap therapy, the patient will need to be - assessed for post discharge needs including - *Post discharge parental anticoagulation - *Warfarin and/or parental anticoagulation education - *Follow up date to check INR post discharge At least 5 days overlap therapy as Inpatient No Meds if any: Prescribed or Continued at Discharge Note: Overlap Therapy is Warfarin and Anticoagulant Meds if any: NOT Prescribed or Continued at Discharge
[2018-03-01] MEDS ORDERED: TYLENOL325 M1 PO ×2 (08:54→11:17)
--- NOTE | 2018-03-01 08:57 | Discharge Summary ---
Visit Information Visit Dates Admission Date: 02/27/18 Discharge Date: 03/01/18 Hospital Course Course Attending Physician: Anne Marie Siddiqui MD Primary Care Physician: Dewey Trevino MD Hospital Course: Ms Cerna is a 57-year-old woman with a past history of remote h/o nephrolithiasis, hyperlipidemia, GERD, mild depression came to the ED with a chief concern of right knee pain. In the ED she was given a dose of Vancomycin in suspicion of septic arthritis. She was admitted to the gen med floor for further evaluation and management #Inflammatory arthritis - Pseudogout of R knee Rheumatology was consulted. Imaging showed chondrocalcinosis of the right knee consitent with pseudogout although the synovial fluid did not reveal calcium pyrophosphate crystals. An arthocentesis was performed that showed a white count of 24,000 but cultures did not grow anything. She was monitored off antibiotics. She was started on an Indomethacin taper and continued on her home meds. She was discharged home with much improvement and advised to follow up with Rheumatology. Allergies: Coded Allergies: No Known Allergies (02/27/18) Pertinent Lab Results: 02/27/18 EXAM TYPE: RAD - XRY-KNEE, RIGHT FINDINGS: Normal bony mineralization. No evidence of acute fracture or dislocation. Minor decrease in the medial tibiotalar joint and patellofemoral joints. Moderate chondrocalcinosis medial and lateral menisci. Small joint effusion. IMPRESSION: 1. No acute osseous abnormality. 2. Moderate chondrocalcinosis medial and lateral menisci. 3. Mild degenerative changes. 02/27/18 EXAM TYPE: US - US-UNILATERAL VENOUS DOPPLER IMPRESSION: No evidence for deep venous thrombosis. [id number] right knee joint effusion. Disposition Summary Disposition Principal Diagnosis: Inflammatory arthritis of the right knee Additional Diagnosis: as above Discharge Disposition: home or self care Discharge Instructions General Discharge Information Code Status: Full Code Patient's Diet: Regular Patient's Activity: As tolerated Follow-Up Instructions/Appts: Follow up with your PCP within 1 week of discharge Medications at Discharge Discharge Medications: Continue taking these medications: Sertraline HCl (Sertraline HCl) 100 MG TABLET 1.5 Tablet ORAL DAILY Qty = 45 Lansoprazole (Lansoprazole) 30 MG CAPSULE.DR 1 Capsule ORAL DAILY Qty = 90 Atorvastatin Calcium (Atorvastatin Calcium) 40 MG TABLET 1 Tablet ORAL DAILY Qty = 90 Aspirin (Adult Aspirin Regimen) 81 MG TABLET.DR 1 Tablet ORAL DAILY Qty = 120 Comments: LAST GIVEN 03/01/18 @ 0915 Start taking the following new medications: Hydrocortisone (Hydrocortisone) 0.5 % CREAM..G. 1 Application ON SKIN THREE TIMES DAILY as needed for hives Qty = 1 No Refills Instructions: . Acetaminophen (Tylenol) 325 MG TABLET 650 Milligram ORAL EVERY SIX HOURS NEEDED as needed for PAIN Qty = 15 No Refills Instructions: . Indomethacin (Indomethacin) 25 MG CAPSULE 50 Milligram ORAL THREE TIMES DAILY Qty = 10 No Refills Instructions: Take 50 mg three times a day until 03/02/18. Take 50 mg twice daily on 03/03/18 for 2 days. Comments: LAST GIVEN 03/01/18 @ 0915 Nicotine (Nicotine Patch) 14 MG/24 HOUR PATCH.TD24 14 Milligram On the skin DAILY Qty = 7 No Refills Instructions: . Comments: LAST GIVEN 03/01/18 @ 0915 Copies To: Uriel WALDRON,Dewey Chambers; Ki WALDRON,Nestor Cifuentes
== END 2018-03-01 11:12 | DRG 554 ==
LOC: ERH 08:26 → 2NB 19:07 → ERHI 19:07 → ENRESERV 02-28 13:00 → ENTRNSPT 02-28 14:16 → EDTRNSPTSTS 02-28 14:28 → 2NB 02-28 14:37 → CMPTRNSPT 02-28 14:48 → 2NB 02-28 15:17 → ENPENDDIS 03-01 10:36 → 2NB 03-01 11:12
PROVIDERS: Student in an Organized Health Care Education/Training Program
DX: M11.261 Other chondrocalcinosis, right knee (principal); E78.5 Hyperlipidemia, unspecified; K21.9 Gastro-esophageal reflux disease without esophagitis; Z79.82 Long term (current) use of aspirin; F32.9 Major depressive disorder, single episode, unspecified; R73.03 Prediabetes
CPT/HCPCS: 2NBSP; 86618; 87075; ERO; 73560-RT; 82436; 87040; 97110-GO; 97116-GO; 97161-GP; J1650; J2001